=== PATIENT | male | born 1945 ===

== ENCOUNTER 2016-12-25 11:40 | Emergency (ER) | payer OTHER ==
[2016-12-25 11:50] VITALS: TEMP 98.4
[2016-12-25] MEDS ORDERED: Sodium Chloride 0.9% 1,000 ML IV STA (11:57)
--- NOTE | 2016-12-25 12:03 | ED PDOC ---
Syncope/Near Syncope/Dizziness Time Seen by Provider: 12/25/16 11:47 Chief Complaint (Nursing): Dizziness/Lightheaded History Per: Patient Onset/Duration Of Symptoms: Mins (5) Current Symptoms Are (Timing): Better Activity At Onset Of Symptoms: Standing Associated Symptoms Preceding Syncopal Episode: No Predromal Symptoms (Sudden Onset) Seizure Or Post-ictal Symptoms: None Fall Associated With With Symptoms: No Severity: Mild Pain Scale Rating Of: 2 Additional Complaint(s): [place] weak and lightheaded after eating, Nauseaous and vomited. Family noted that he "passed out" for less than 1 min. Pt denies cheest pain or palpitations. No seizure activity. Pt state s he feels better now. Past Medical History Vital Signs: Last Vital Signs Temp 98.4 F 12/25/16 11:46 Pulse 52 L 12/25/16 11:46 Resp 20 12/25/16 11:46 BP 154/78 H 12/25/16 11:46 Pulse Ox 98 12/25/16 11:46 - Medical History PMH: Dementia, HTN - Family History Family History: States: Unknown Family Hx - Allergies Allergies/Adverse Reactions: Allergies Allergy/AdvReac Type Severity Reaction Status Date / Time No Known Allergies Allergy Verified 12/25/16 11:46 Review of Systems ROS Statement: Except As Marked, All Systems Reviewed And Found Negative Gastrointestinal: Positive for: Nausea, Vomiting Neurological: Positive for: Other (Syncope) Physical Exam - Reviewed Nursing Documentation Reviewed: Yes Vital Signs Reviewed: Yes - Physical Exam Appears: Positive for: Non-toxic, No Acute Distress Head Exam: Positive for: ATRAUMATIC, NORMAL INSPECTION, NORMOCEPHALIC Skin: Positive for: Normal Color, Warm, DRY Eye Exam: Positive for: EOMI, Normal appearance, PERRL ENT: Positive for: Normal ENT Inspection Neck: Positive for: Normal, Painless ROM Cardiovascular/Chest: Positive for: Regular Rate, Rhythm Respiratory: Positive for: CNT, Normal Breath Sounds Gastrointestinal/Abdominal: Positive for: Normal Exam, Bowel Sounds, Soft Back: Positive for: Normal Inspection Extremity: Positive for: Normal ROM Neurologic/Psych: Positive for: Alert, Oriented. Negative for: Motor/Sensory Deficits - Laboratory Results Result Diagrams: 12/25/16 11:40 12/25/16 12:20 - ECG O2 Sat by Pulse Oximetry: 98 Medical Decision Making Medical Decision Making: Feels better no chest pain or light headedness. Wishes to go home. Advised 24 hr obs for syncope. Aware of risks including recurrence of syncope. head injury arrhythmia and . Givenn referral to CHF and advised f/u Mon. Disposition - Clinical Impression Clinical Impression: Syncope - Patient ED Disposition Is Patient to be Admitted: No Counseled Patient/Family Regarding: Studies Performed, Diagnosis, Need For Followup, Rx Given - Disposition Referrals: [facility] [Outside] Disposition: Routine/Home Disposition Time: 13:43 Condition: FAIR Instructions: Syncope (ED) Forms: [facility] (Indian) Print Language: JAPANESE
[2016-12-25 12:19] LABS: BASO # 0.1 K/uL (0.0-0.2); EOS # 0.1 K/uL (0.0-0.7); EOS % 1.8 % (0.0-4.0); HEMATOCRIT 39.1 % (35.0-51.0); LYMPH # 1.7 K/uL (1.0-4.3); LYMPH % 27.3 % (20.0-40.0); MEAN CELL VOLUME 92.7 fl (80.0-94.0); MEAN CORPUSCULAR HEMOGLOBIN 30.7 pg (27.0-31.0); MEAN CORPUSCULAR HGB CONC 33.1 g/dL (33.0-37.0); MEAN PLATELET VOLUME 7.1 fl (7.2-11.7); MONO # 0.7 K/uL (0.0-0.8); MONO % 11.6 % (0.0-10.0); NEUT # 3.7 K/uL (1.8-7.0); NEUT % 58.3 % (50.0-75.0); RED CELL DISTRIBUTION WIDTH 13.5 % (11.5-14.5); WHITE BLOOD COUNT 6.3 K/uL (4.8-10.8)
[2016-12-25 12:31] LABS: ALB/GLOB RATIO 1.4 (1.0-2.1); ALKALINE PHOSPHATASE 92 U/L (38-126); ALT/SGPT 27 U/L (21-72); AST/SGOT 30 U/L (17-59); BLOOD UREA NITROGEN 14 mg/dl (9-20); CARBON DIOXIDE 24 mmol/L (22-30); CHLORIDE 102 mmol/L (98-107); GFR AFRICAN-AMERICAN > 60; GLUCOSE,RANDOM 103 mg/dL (75-110); POTASSIUM 4.5 MMOL/L (3.6-5.0); SODIUM 137 mmol/l (132-148); TOTAL PROTEIN 7.3 G/DL (6.3-8.2)
--- NOTE | 2016-12-25 12:55 | CT ---
PROCEDURE: CT HEAD WITHOUT CONTRAST. HISTORY: r/o bleed COMPARISON: None available. TECHNIQUE: Axial computed tomography images were obtained through the head/brain without intravenous contrast. Radiation dose: Total exam DLP = 871.72 mGy-cm. This CT exam was performed using one or more of the following dose reduction techniques: Automated exposure control, adjustment of the mA and/or kV according to patient size, and/or use of iterative reconstruction technique. FINDINGS: HEMORRHAGE: No intracranial hemorrhage. BRAIN: No mass effect or edema. Hdqs-nd-[id number] atrophy and white matter changes suggestive but nonspecific for chronic microvascular ischemic disease. VENTRICLES: Unremarkable. No hydrocephalus. CALVARIUM: Unremarkable. PARANASAL SINUSES: Unremarkable as visualized. No significant inflammatory changes. MASTOID AIR CELLS: Unremarkable as visualized. No inflammatory changes. OTHER FINDINGS: None. IMPRESSION: No evidence of acute intracranial hemorrhage intracranial collection mass effect or midline shift. Grbt-hj-avokemtn atrophy. Gofb-io-vqgtusgj white matter changes suggestive but nonspecific for chronic microvascular ischemic disease.
[2016-12-25 13:49] VITALS: BP 142/73; PULSE 76; RESP 18; O2SAT 100
--- NOTE | 2016-12-25 18:20 | CARD ---
APPROVED REPORT EKG Measurement Heart [id number] ME [id number] [id number] <Conclusion> Sinus bradycardia with premature atrial complexes Right bundle branch block Abnormal ECG
== END 2016-12-25 14:08 | disposition home or self-care (01) ==
LOC: H.ER 11:40
DX: R55 Syncope and collapse (principal); F03.90 Unspecified dementia, unspecified severity, without behavioral disturbance, psychotic disturbance, mood disturbance, and anxiety; I10 Essential (primary) hypertension; I49.1 Atrial premature depolarization
CPT/HCPCS: 70450; 80053; 82948; 84484; 85025; 93005; 99285; J7040